=== PATIENT | female | born 1940 | race Hispanic/Latino ===

== ENCOUNTER 2017-01-14 17:53 | Inpatient (IN) | payer MEDICARE ==
[2017-01-14] MEDS ORDERED: DUONEB *Not for PRN Use IH ONE (18:56)
[2017-01-14 19:34] LABS: Hematocrit 27.7 % (30.3-42.9); Hemoglobin 9.2 gm/dl (10.1-14.3); Mean Corpuscular HGB Conc 33 % (30-34); Mean Corpuscular Hemoglobin 39 pg (28-32); Platelet Count 311 K/mm3 (140-440); Red Blood Count 2.34 M/mm3 (3.65-5.03); White Blood Count 4.7 K/mm3 (4.5-11.0)
[2017-01-14 19:35] LABS: Mean Corpuscular Volume 118 fl (79-97); Red Cell Distribution Width 28.4 % (13.2-15.2)
[2017-01-14 19:50] LABS: Anion Gap 17 mmol/L; BUN/Creatinine Ratio 22.22; Blood Urea Nitrogen 20 mg/dL (7-17); Calcium 8.6 mg/dL (8.4-10.2); Carbon Dioxide 27 mmol/L (22-30); Chloride 105.2 mmol/L (98-107); Glucose 104 mg/dL (65-100); Potassium 4.7 mmol/L (3.6-5.0); Sodium 144 mmol/L (137-145)
[2017-01-14 20:07] LABS: Basophils % (Manual) 0 % (0.0-1.8); Blastocytes % (Manual) 0 %
[2017-01-14 20:09] LABS: Anisocytosis 3+; Elliptocytes Few; Macrocytosis 2+; Platelet Clumps Rare; Platelet Estimate Consistent w Auto; Poikilocytosis Few
[2017-01-14 20:10] LABS: Diff Status Complete
[2017-01-14] MEDS ORDERED: ZITHROMAX 500 MG in NACL 0.9% 250ML 250 ML IV ONE (20:37)
[2017-01-14] MEDS ORDERED: TESSALON PERLES PO ONE (20:37)
--- NOTE | 2017-01-14 21:20 | Emergency Department Report ---
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 Positive increased wheezing. Positive cough occasionally productive of thick clear sputum. Positive chest pain associated with cough episodes only. She denies nausea, vomiting, diaphoresis, or calf tenderness. Positive chronic leg edema reported. Patient reports that on the seventh she refused a blood transfusion at [facility] [place] [facility]. Patient typically uses oxygen as needed but has been using it all the time for the last 2 days. Patient took a prednisone 2 days ago but isn't taking it continuously. Her sanitation truck driver Dr. Cuellar gave her prescription of prednisone to take as a mini taper as needed. PMD: Dr Tilley - Related Data Home Medications Medication Instructions Recorded Confirmed Last Taken Aspirin [Aspirin BABY CHEW TAB] 81 mg PO DAILY 11/23/14 01/14/17 10/06/16 10:30 81mg Furosemide [Lasix TAB] 40 mg PO PRN PRN 11/23/14 01/14/17 10/06/16 10:30 40mg HYDROcodone/APAP 10-325 [[place] 1 each PO Q6HR PRN 11/23/14 01/14/17 09/30/16 21: 00 10-325 mg TAB] 1 tab Losartan [Cozaar] 50 mg PO QDAY 11/23/14 01/14/17 10/06/16 10:30 50mg amLODIPine [Norvasc] 5 mg PO DAILY 11/23/14 01/14/17 10/06/16 10:30 5mg Cranberry Fruit Extract [Cranberry] 300 mg PO QDAY 07/28/16 01/14/17 10/05/16 21 :00 300mg Lactobacillus Combination No.8 1 each PO QDAY 07/28/16 01/14/17 10/05/16 21:00 [Adult Probiotic] 1 tab Epoetin Tirso 40,000 Unit (Nf) 50,000 unit SUB-Q QWEEK 0401/14/17 10:30 [Procrit (Nf)] 50,000 Folic Acid [Folvite] 1 mg PO BID 08/26/16 01/14/17 10/06/16 10:30 1mg Levothyroxine [Synthroid] 50 mcg PO QAM 09/16/16 01/14/17 10/06/16 10:30 50mcg Ranitidine HCl [Zantac 150 MG TAB] 150 mg PO BID MDD 300mg 09/16/16 01/14/1710/17 10:30 150mg Previous Rx's Medication Instructions Recorded Last Taken Type Carvedilol [Coreg] 3.125 mg PO BID #60 tablet 03/02/14 10/06/16 10:30 Rx 3.125mg Cholecalciferol (Vitamin D3) 2,000 unit PO QDAY #30 capsule 03/02/14 10/06/16 10 :30 Rx [Vitamin D3 2,000 unit] Cilostazol [Pletal] 100 mg PO BID #60 tablet 03/02/14 10/05/16 21:00 Rx 100mg Cyanocobalamin (Vitamin B-12) 5,000 mcg SL DAILY #30 tab.subl 03/02/14 10/06/16 10:30 Rx [Vitamin B-12] 5000mcg Simvastatin [Zocor TAB] 20 mg PO QHS #30 tablet 03/02/14 10/04/16 21:00 Rx 20mg traMADol [Ultram 50 MG tab] 50 mg PO Q6H PRN #60 tablet 03/02/14 10/05/16 21:00 Rx 50mg Allergies Allergy/AdvReac Type Severity Reaction Status Date / Time No Known Allergies Allergy Verified 02/26/14 12:46 ED Review of Systems ROS: Stated complaint: MYLES Other details as noted in HPI Comment: All other systems reviewed and negative Other: Constitutional: No fevers chills Eyes: No eye pain visual changes ENT: No ear pain or throat pain Neck: Denies pain Respiratory: as per hpi Cardiovascular: Denies palpitations, syncope GI: Denies abdominal pain, nausea, vomiting, diarrhea : Denies dysuria Musculoskeletal: Denies back pain Skin: Denies rash, lesions, erythema Neurologic: Denies headache, numbness, weakness Psychiatric: Denies suicidal ideation, hallucinations ED Past Medical Hx - Past Medical History Hx Hypertension: Yes Hx Heart Attack/AMI: No Hx Deep Vein Thrombosis: No Hx Pulmonary Embolism: No Hx GERD: Yes Hx Renal Disease: Yes Hx Arthritis: Yes Hx Seizures: No Hx Asthma: No Hx COPD: Yes Hx Tuberculosis: No Hx Dementia: No Hx HIV: No Additional medical history: HX of MDS - Surgical History Hx Coronary Stent: No Hx Pacemaker: No Hx Internal Defibrillator: No Additional Surgical History: Hysterectomy - Social History Smoking Status: Never Smoker Substance Use Type: None - Medications Home Medications: Home Medications Medication Instructions Recorded Confirmed Last Taken Type Carvedilol [Coreg] 3.125 mg PO BID #60 tablet 03/02/14 01/14/17 10/06/16 10:30 Rx 3.125mg Cholecalciferol (Vitamin D3) 2,000 unit PO QDAY #30 capsule 03/02/14 01/14/17 10:30 Rx [Vitamin D3 2,000 unit] Cilostazol [Pletal] 100 mg PO BID #60 tablet 03/02/14 01/14/17 10/05/16 21:00 Rx 100mg Cyanocobalamin (Vitamin B-12) 5,000 mcg SL DAILY #30 tab.subl 03/02/14 01/14/17 10/06/16 10:30 Rx [Vitamin B-12] 5000mcg Simvastatin [Zocor TAB] 20 mg PO QHS #30 tablet 03/02/14 01/14/17 10/04/16 21: 00 Rx 20mg traMADol [Ultram 50 MG tab] 50 mg PO Q6H PRN #60 tablet 03/02/14 01/14/17 21:00 Rx 50mg Aspirin [Aspirin BABY CHEW TAB] 81 mg PO DAILY 11/23/14 01/14/17 10/06/16 10:30 History 81mg Furosemide [Lasix TAB] 40 mg PO PRN PRN 11/23/14 01/14/17 10/06/16 10:30 History 40mg HYDROcodone/APAP 10-325 [[place] 1 each PO Q6HR PRN 11/23/14 01/14/17 09/30/16 21: 00 History 10-325 mg TAB] 1 tab Losartan [Cozaar] 50 mg PO QDAY 11/23/14 01/14/17 10/06/16 10:30 History 50mg amLODIPine [Norvasc] 5 mg PO DAILY 11/23/14 01/14/17 10/06/16 10:30 History 5mg Cranberry Fruit Extract [Cranberry] 300 mg PO QDAY 07/28/16 01/14/17 10/05/16 21 :00 History 300mg Lactobacillus Combination No.8 1 each PO QDAY 07/28/16 01/14/17 10/05/16 21:00 History [Adult Probiotic] 1 tab Epoetin Tirso 40,000 Unit (Nf) 50,000 unit SUB-Q QWEEK 08/26/16 01/14/17 10:30 History [Procrit (Nf)] 50,000 Folic Acid [Folvite] 1 mg PO BID 08/26/16 01/14/17 10/06/16 10:30 History 1mg Levothyroxine [Synthroid] 50 mcg PO QAM 09/16/16 01/14/17 10/06/16 10:30 History 50mcg Ranitidine HCl [Zantac 150 MG TAB] 150 mg PO BID MDD 300mg 09/16/16 01/14/1710/17 10:30 History 150mg ED Physical Exam - General Limitations: No Limitations - Other Other exam information: General: No limitations, patient is alert in no acute distress Head exam: Atraumatic, normocephalic Eyes exam: Normal appearance, pupils equal reactive to light, extraocular movements intact ENT: Moist mucous membrane, normal oropharynx Neck exam: Normal inspection, full range of motion, no meningismus nontender Respiratory exam: Diminished breath sounds, no wheezes, rales or crackles however, auscultated after receiving the treatment and patient reports improvement Cardiovascular: Normal rate and rhythm Abdomen: Soft, nondistended, and nontender, with normal bowel sounds, no rebound, or guarding Extremity: Full range of motion normal inspection no deformity Back: Normal Inspection, full range of motion, no tenderness Neurologic: Alert, oriented x3, cranial nerves intact, no motor or sensory deficit Psychiatric: normal affect, normal mood Skin: Warm, dry, intact ED Course Vital Signs 01/14/17 01/14/17 01/14/17 19:02 19:40 19:50 Temperature 98 F Pulse Rate 78 Pulse Rate [ 86 89 Anterior Bilateral Throughout] Respiratory 16 Rate Respiratory 16 16 Rate [Anterior Bilateral Throughout] Blood Pressure 146/87 O2 Sat by Pulse 95 Oximetry - Reevaluation(s) Reevaluation #1: 01/14/17 21:22 Patient treated with several nebs and Solu-Medrol in the ED. Azithromycin initiated. No infiltrate ED Medical Decision Making - Lab Data Result diagrams: 01/14/17 19:11 01/14/17 19:11 Lab Results 01/14/17 01/14/17 Range/Units 19:11 19:11 WBC 4.7 (4.5-11.0) K/mm3 RBC 2.34 L (3.65-5.03) M/mm3 Hgb 9.2 L (10.1-14.3) gm/dl Hct 27.7 L (30.3-42.9) % MCV 118 H (79-97) fl MCH 39 H (28-32) pg MCHC 33 (30-34) % RDW 28.4 H (13.2-15.2) % Plt Count 311 (140-440) K/mm3 [place] % (Auto) Chain Carrier Add Manual Diff Complete Total Counted 100 Seg Neuts % (Manual) 49.0 (40.0-70.0) % Band Neutrophils % 0 % Lymphocytes % (Manual) 29.0 (13.4-35.0) % Reactive Lymphs % (Man) 0 % Monocytes % (Manual) 16.0 H (0.0-7.3) % Eosinophils % (Manual) 6.0 H (0.0-4.3) % Basophils % (Manual) 0 (0.0-1.8) % Metamyelocytes % 0 % Myelocytes % 0 % Promyelocytes % 0 % Blast Cells % 0 % Nucleated RBC % Not Reportable Seg Neutrophils # Man 2.3 (1.8-7.7) K/mm3 Band Neutrophils # 0.0 K/mm3 Lymphocytes # (Manual) 1.4 (1.2-5.4) K/mm3 Abs React Lymphs (Man) 0.0 K/mm3 Monocytes # (Manual) 0.8 (0.0-0.8) K/mm3 Eosinophils # (Manual) 0.3 (0.0-0.4) K/mm3 Basophils # (Manual) 0.0 (0.0-0.1) K/mm3 Metamyelocytes # 0.0 K/mm3 Myelocytes # 0.0 K/mm3 Promyelocytes # 0.0 K/mm3 Blast Cells # 0.0 K/mm3 WBC Morphology Not Reportable Hypersegmented Neuts Not Reportable Hyposegmented Neuts Not Reportable Hypogranular Neuts Not Reportable Smudge Cells Not Reportable Toxic Granulation Not Reportable Toxic Vacuolation Not Reportable Dohle Bodies Not Reportable Pelger-Huet Anomaly Not Reportable Maximo Rods Not Reportable Platelet Estimate Consistent w auto Clumped Platelets Rare Plt Clumps, EDTA Not Reportable Large Platelets Not Reportable Giant Platelets Not Reportable Platelet Satelliting Not Reportable Plt Morphology Comment Not Reportable RBC Morphology Not Reportable Dimorphic RBCs Not Reportable Polychromasia Not Reportable Hypochromasia Not Reportable Poikilocytosis Few Anisocytosis 3+ Microcytosis Not Reportable Macrocytosis 2+ Spherocytes Not Reportable Pappenheimer Bodies Not Reportable Sickle Cells Not Reportable Target Cells Not Reportable Tear Drop Cells Not Reportable Ovalocytes Not Reportable Helmet Cells Not Reportable [place] Bodies Not Reportable [place] Rings Not Reportable Angela Cells Not Reportable Bite Cells Not Reportable Crenated Cell Not Reportable Elliptocytes Few Acanthocytes (Spur) Not Reportable Rouleaux Not Reportable Hemoglobin C Crystals Not Reportable Schistocytes Not Reportable Malaria parasites Not Reportable Elijah Bodies Not Reportable Hem Pathologist Commnt No Sodium 144 (137-145) mmol/L Potassium 4.7 (3.6-5.0) mmol/L Chloride 105.2 (98-107) mmol/L Carbon Dioxide 27 (22-30) mmol/L Anion Gap 17 mmol/L BUN 20 H (7-17) mg/dL Creatinine 0.9 (0.7-1.2) mg/dL Estimated GFR > 60 ml/min BUN/Creatinine Ratio 22.22 % Glucose 104 H (65-100) mg/dL Calcium 8.6 (8.4-10.2) mg/dL Troponin T < 0.010 (0.00-0.029) ng/mL - EKG Data -: EKG Interpreted by Me (nsr rate 80, no stemi) - Medical Decision Making Patient will be admitted to the hospital for acute COPD exacerbation. She was treated with nebs, steroids, and azithromycin. Lindy Joseph also provided for cough - Differential Diagnosis CHF, pneumonia, bronchitis Critical Care Time: No Critical care attestation.: If time is entered above; I have spent that time in minutes in the direct care of this critically ill patient, excluding procedure time. ED Disposition Clinical Impression: COPD exacerbation, Anemia Disposition: OP ADMIT IP TO THIS HOSP Is pt being admited?: Yes Condition: Stable Time of Disposition: 21:23 (Dr Garcia/hosp)
[2017-01-14 21:44] LABS: Bacteria,Urine 1+ /HPF (Negative); Bilirubin,Urine NEG (Negative); Blood,Urine NEG (Negative); Ketones,Urine NEG (Negative); Leukocyte Esterase,Urine NEG (Negative); Mucus,Urine FEW /HPF; Nitrite,Urine NEG (Negative); Protein,Urine <15 mg/dL mg/dL (Negative)
[2017-01-14] MEDS ORDERED: DULCOLAX PR PRN (23:24)
[2017-01-14] MEDS ORDERED: ZOFRAN IV PRN (23:24)
[2017-01-14] MEDS ORDERED: MILK OF MAGNESIA PO PRN (23:24)
--- NOTE | 2017-01-14 23:24 | History and Physical Report ---
History of Present Illness Date of examination: 01/14/17 Date of admission: 01/14/17 22:20 History of present illness: Summary 2-year-old woman history of hypertension, COPD, hyperlipidemia, hypothyroidism, MDS, comes to emergency room with complains of cough and shortness of breath, not relieved with her nebulizer treatments at home. Patient stated that her symptoms worsened throughout the day, she was visited by both health nurse who recommended that the patient got to the emergency room for further evaluation Review Of Systems: Constitutional: no weight loss Ears, eyes, nose, mouth and throat: no nasal congestion, no nasal discharge, no sinus pressure, blurry vision, diplopia Neck: No neck pain or rigidity. Cardiovascular: No chest pain, orthopnea, palpitations Respiratory: + shortness of breath, cough Gastrointestinal: abdominal pain, hematochezia Genitourinary : no dysuria, frequency , hematuria Musculoskeletal: no muscle ache Integumentary: no rash, no pruritis Neurological: no parathesias, focal weakness Endocrine: no cold or heat intolerance, no polyuria or polydipsia Hematologic/Lymphatic: no easy bruising, no easy bleeding, no gland swelling Allergic/Immunologic: no urticaria, no angioedema. PAST MEDICAL HISTORY:hypertension, COPD, hyperlipidemia, hypothyroidism , MDS PAST SURGICAL HISTORY: Hysterectomy FAMILY HISTORY: Hypertension SOCIAL HISTORY: Denies alcohol, tobacco, drugs Medications and Allergies Allergies Allergy/AdvReac Type Severity Reaction Status Date / Time No Known Allergies Allergy Verified 02/26/14 12:46 Home Medications Medication Instructions Recorded Confirmed Last Taken Type Carvedilol [Coreg] 3.125 mg PO BID #60 tablet 03/02/14 01/14/17 10/06/16 10:30 Rx 3.125mg Cholecalciferol (Vitamin D3) 2,000 unit PO QDAY #30 capsule 03/02/14 01/14/17 10:30 Rx [Vitamin D3 2,000 unit] Cilostazol [Pletal] 100 mg PO BID #60 tablet 03/02/14 01/14/17 10/05/16 21:00 Rx 100mg Cyanocobalamin (Vitamin B-12) 5,000 mcg SL DAILY #30 tab.subl 03/02/14 01/14/17 10/06/16 10:30 Rx [Vitamin B-12] 5000mcg Simvastatin [Zocor TAB] 20 mg PO QHS #30 tablet 03/02/14 01/14/17 10/04/16 21: 00 Rx 20mg traMADol [Ultram 50 MG tab] 50 mg PO Q6H PRN #60 tablet 03/02/14 01/14/17 21:00 Rx 50mg Aspirin [Aspirin BABY CHEW TAB] 81 mg PO DAILY 11/23/14 01/14/17 10/06/16 10:30 History 81mg Furosemide [Lasix TAB] 40 mg PO PRN PRN 11/23/14 01/14/17 10/06/16 10:30 History 40mg HYDROcodone/APAP 10-325 [[place] 1 each PO Q6HR PRN 11/23/14 01/14/17 09/30/16 21: 00 History 10-325 mg TAB] 1 tab Losartan [Cozaar] 50 mg PO QDAY 11/23/14 01/14/17 10/06/16 10:30 History 50mg amLODIPine [Norvasc] 5 mg PO DAILY 11/23/14 01/14/17 10/06/16 10:30 History 5mg Cranberry Fruit Extract [Cranberry] 300 mg PO QDAY 07/28/16 01/14/17 10/05/16 21 :00 History 300mg Lactobacillus Combination No.8 1 each PO QDAY 07/28/16 01/14/17 10/05/16 21:00 History [Adult Probiotic] 1 tab Epoetin Tirso 40,000 Unit (Nf) 50,000 unit SUB-Q QWEEK 08/26/16 01/14/17 10:30 History [Procrit (Nf)] 50,000 Folic Acid [Folvite] 1 mg PO BID 08/26/16 01/14/17 10/06/16 10:30 History 1mg Levothyroxine [Synthroid] 50 mcg PO QAM 09/16/16 01/14/17 10/06/16 10:30 History 50mcg Ranitidine HCl [Zantac 150 MG TAB] 150 mg PO BID MDD 300mg 09/16/16 01/14/1710/17 10:30 History 150mg Active Meds: Active Medications Enoxaparin Sodium (Lovenox) 30 mg SUB-Q QDAY HEATHER Exam - Physical Exam Narrative exam: Gen. appearance: Patient lying in bed in no acute distress HEENT: Normocephalic/atraumatic, pupils equal round reactive to light, extra alkaline movement intact, no scleral icterus, no JVD or thyromegaly or nodule, neck is supple, mucous membrane moist, no erythema or exudate Heart: S1-S2, regular rate and rhythm Lungs: Wheezing bilateral breathing comfortable Abdomen: Positive bowel sounds, nontender, nondistended, no organomegaly Extremities: No edema, cyanosis, clubbing Neuro:: Oriented 3 , cranial nerves II-12 intact, speech, motor intact Skin: No rash, nodules, warm dry - Constitutional Vitals: Temp Pulse Resp BP Pulse Ox 98 F 74 16 144/56 95 01/14/17 19:02 01/14/17 21:50 01/14/17 21:50 01/14/17 21:50 01/14/17 21:50 Results - Labs CBC & Chem 7: 01/14/17 19:11 01/14/17 19:11 - Imaging and Cardiology EKG: image reviewed Chest x-ray: image reviewed Assessment and Plan Assessment COPD exacerbation Hypertension Hyperlipidemia Hypothyroidism MDS Plan Admit to medicine Start high-dose IV steroids, nebulizer treatments Check reticulocyte enzymes, continue appropriate outpatient medications DVT prophylaxis
[2017-01-15] MEDS: DUONEB *Not for PRN Use IH SCH ×4 (02:26→19:23)
[2017-01-15 04:02] LABS: Hematocrit 25.5 % (30.3-42.9); Hemoglobin 9.2 gm/dl (10.1-14.3); Mean Corpuscular HGB Conc 36 % (30-34); Mean Corpuscular Hemoglobin 44 pg (28-32); Platelet Count 305 K/mm3 (140-440); Red Blood Count 2.12 M/mm3 (3.65-5.03)
[2017-01-15 04:11] LABS: Mean Corpuscular Volume 121 fl (79-97); Red Cell Distribution Width 28.8 % (13.2-15.2)
[2017-01-15 04:21] LABS: Anion Gap 17 mmol/L; Blood Urea Nitrogen 20 mg/dL (7-17); Calcium 8.7 mg/dL (8.4-10.2); Carbon Dioxide 24 mmol/L (22-30); Chloride 103.2 mmol/L (98-107); Glucose 166 mg/dL (65-100); Potassium 4.7 mmol/L (3.6-5.0); Sodium 139 mmol/L (137-145)
[2017-01-15 04:45] LABS: Creatine Kinase MB 1.4 ng/mL (0.0-4.0)
[2017-01-15 05:33] LABS: Basophils % (Manual) 0 % (0.0-1.8); Blastocytes % (Manual) 0 %
[2017-01-15 05:34] LABS: Anisocytosis 3+; Macrocytosis 2+
[2017-01-15 05:38] LABS: Polychromasia Rare
[2017-01-15 05:39] LABS: Giant Platelets Rare; Platelet Estimate Appe
[2017-01-15 05:40] LABS: Diff Status Complete
--- NOTE | 2017-01-15 07:36 | XRay Report ---
Chest 2 views: Compared to 09/16/16. History: Shortness of breath. Findings: Normal cardiomediastinal silhouette. Trachea is midline. Evidence of emphysema. No acute consolidation or pleural effusion. Impression: Emphysema. No acute lung changes.
[2017-01-15] MEDS: LOVENOX SUB-Q SCH (09:23)
--- NOTE | 2017-01-15 09:31 | Hem/Onc Progress Note ---
Assessment and Plan Patient's CK-MB is high. May need cardiac evaluation. In the meantime we will follow her CBC and if she drops below 9 tomorrow, we will transfuse her one unit of packed RBCs. Subjective Date of service: 01/15/17 Interval history: Patient is known to me. History of myelodysplastic syndrome requiring transfusions regularly. Last transfusion was last week. Patient presented with shortness of breath. Hemoglobin 9.2. Patient states that she feels she needs blood which makes her feel better. Objective - Constitutional Vitals: Last Vital Signs Temp 98.3 F 01/14/17 23:30 Pulse 83 01/14/17 23:30 Resp 22 01/14/17 23:30 BP 142/54 01/14/17 23:30 Pulse Ox 96 01/14/17 23:30 Pain Intensity (0-10): denies any pain General appearance: mild distress Performance status: 3-limited selfcare - Neck Neck: supple - Respiratory Respiratory effort: Positive: normal Respiratory: bilateral: diminished - Cardiovascular Rhythm: regular Extremities: No edema - Gastrointestinal General gastrointestinal: Present: soft - Labs Lab Results: Laboratory Results - last 24 hr 01/15/17 01/15/17 01/15/17 03:35 03:35 03:35 WBC 4.0 L RBC 2.12 L Hgb 9.2 L Hct 25.5 L MCV 121 H MCH 44 H MCHC 36 H RDW 28.8 H Plt Count 305 Add Manual Diff Complete Total Counted 100 Seg Neuts % (Manual) 82.0 H Band Neutrophils % 3.0 Lymphocytes % (Manual) 11.0 L Reactive Lymphs % (Man) 1.0 Monocytes % (Manual) 2.0 Eosinophils % (Manual) 1.0 Basophils % (Manual) 0 Metamyelocytes % 0 Myelocytes % 0 Promyelocytes % 0 Blast Cells % 0 Nucleated RBC % Not Reportable Seg Neutrophils # Man 3.3 Band Neutrophils # 0.1 Lymphocytes # (Manual) 0.4 L Abs React Lymphs (Man) 0.0 Monocytes # (Manual) 0.1 Eosinophils # (Manual) 0.0 Basophils # (Manual) 0.0 Metamyelocytes # 0.0 Myelocytes # 0.0 Promyelocytes # 0.0 Blast Cells # 0.0 WBC Morphology Not Reportable Hypersegmented Neuts Not Reportable Hyposegmented Neuts Not Reportable Hypogranular Neuts Not Reportable Smudge Cells Not Reportable Toxic Granulation Not Reportable Toxic Vacuolation Not Reportable Dohle Bodies Not Reportable Pelger-Huet Anomaly Not Reportable Maximo Rods Not Reportable Platelet Estimate Appe Clumped Platelets Not Reportable Plt Clumps, EDTA Not Reportable Large Platelets Not Reportable Giant Platelets Rare Platelet Satelliting Not Reportable Plt Morphology Comment Not Reportable RBC Morphology Not Reportable Dimorphic RBCs Not Reportable Polychromasia Rare Hypochromasia Not Reportable Poikilocytosis Not Reportable Anisocytosis 3+ Microcytosis Not Reportable Macrocytosis 2+ Spherocytes Not Reportable Pappenheimer Bodies Not Reportable Sickle Cells Not Reportable Target Cells Not Reportable Tear Drop Cells Not Reportable Ovalocytes Not Reportable Helmet Cells Not Reportable [place] Bodies Not Reportable [place] Rings Not Reportable Angela Cells Not Reportable Bite Cells Not Reportable Crenated Cell Not Reportable Elliptocytes Not Reportable Acanthocytes (Spur) Not Reportable Rouleaux Not Reportable Hemoglobin C Crystals Not Reportable Schistocytes Not Reportable Malaria parasites Not Reportable Elijah Bodies Not Reportable Hem Pathologist Commnt No Sodium 139 Potassium 4.7 Chloride 103.2 Carbon Dioxide 24 Anion Gap 17 BUN 20 H Creatinine 0.8 Estimated GFR > 60 BUN/Creatinine Ratio 25.00 Glucose 166 H Calcium 8.7 Total Creatine Kinase 27 L CK-MB (CK-2) 1.4 CK-MB (CK-2) Rel Index 5.1 H Troponin T 01/15/17 03:35 WBC RBC Hgb Hct MCV MCH MCHC RDW Plt Count Add Manual Diff Total Counted Seg Neuts % (Manual) Band Neutrophils % Lymphocytes % (Manual) Reactive Lymphs % (Man) Monocytes % (Manual) Eosinophils % (Manual) Basophils % (Manual) Metamyelocytes % Myelocytes % Promyelocytes % Blast Cells % Nucleated RBC % Seg Neutrophils # Man Band Neutrophils # Lymphocytes # (Manual) Abs React Lymphs (Man) Monocytes # (Manual) Eosinophils # (Manual) Basophils # (Manual) Metamyelocytes # Myelocytes # Promyelocytes # Blast Cells # WBC Morphology Hypersegmented Neuts Hyposegmented Neuts Hypogranular Neuts Smudge Cells Toxic Granulation Toxic Vacuolation Dohle Bodies Pelger-Huet Anomaly Maximo Rods Platelet Estimate Clumped Platelets Plt Clumps, EDTA Large Platelets Giant Platelets Platelet Satelliting Plt Morphology Comment RBC Morphology Dimorphic RBCs Polychromasia Hypochromasia Poikilocytosis Anisocytosis Microcytosis Macrocytosis Spherocytes Pappenheimer Bodies Sickle Cells Target Cells Tear Drop Cells Ovalocytes Helmet Cells [place] Bodies [place] Rings [place] Cells Bite Cells Crenated Cell Elliptocytes Acanthocytes (Spur) Rouleaux Hemoglobin C Crystals Schistocytes Malaria parasites Elijah Bodies Hem Pathologist Commnt Sodium Potassium Chloride Carbon Dioxide Anion Gap BUN Creatinine Estimated GFR BUN/Creatinine Ratio Glucose Calcium Total Creatine Kinase CK-MB (CK-2) CK-MB (CK-2) Rel Index Troponin T < 0.010
[2017-01-15] MEDS ORDERED: LOVENOX SUB-Q SCH (10:00)
--- NOTE | 2017-01-15 11:02 | Admit Criteria Form ---
Admission Criteria Documentation: COPD Clinical Indications for Admission to Inpatient Care ([place]/ check or initial the applicable condition/criteria) Admission is indicated for ANY ONE of the following (1)(2)(3): [ ]I. Acute exacerbation by high-risk comorbidity(e.g., pneumonia, dysrhythmia, heart failure, pleural effusion, pneumothorax) or severe underlying COPD (eg, baseline FEV1 less than 50% predicted) [x ]II. Inpatient admission required[A] rather than observation care (see Chronic Obstructive Pulmonary Disease: Observation Care) because of ANY ONE of the following: [x ]a) New or pre-existing signs or symptoms of COPD (eg, dyspnea or Tachypnea at rest or with minimal activity) that persist despite outpatient and observation care treatment [ ]b) New-onset hypoxemia (room air SaO2 less than 90%, PO2 less than 60 mm Hg (8.0 kPa)) that persists despite outpatient and observation care treatment [ ]c) Worsening of pre-existing hypoxemia (eg, new or increased requirement for supplemental oxygen to maintain oxygenation at baseline level) that persists despite outpatient and observation care treatment, with oxygen treatment needs performable only in acute inpatient setting [ ]d) Hypercarbia (PCO2 greater than 40 mm Hg (5.3 kPa))-induced respiratory acidosis (pH less than 7.35) that persists despite outpatient and observation care treatment [ ]e) Supplemental oxygen or respiratory treatments for over 24 hours that are performable only in acute inpatient setting [ ]f) Chest tube placement with active evacuation (e.g., suction, drainage) (6) [ ]g) Other condition, treatment or monitoring requiring inpatient admission [ ]III. Planned invasive surgical or diagnostic procedures requiring acute- care hospitalization [ ]IV. Acute respiratory failure (e.g., uncompensated hypercarbia, severe hypoxemia) [ ]V. Severe comorbid condition (e.g., severe steroid myopathy, acute vertebral fracture) that has acutely worsened pulmonary function [ ]. Altered mental status that is severe or persistent Extended stay beyond goal length of stay may be needed for (29)(30)(31)(32)(33) : [ ]a ) Respiratory Failure. [ ]b) Severe or persisting hypoxemia or hypercarbia [ ]c) Severe or persistent dyspnea [ ]d) Clinically significant Comorbidities (e.g. chronic heart failure, atrial fibrillation with rapid response, pneumonia)(36) [ ]e) Malnutrition (33) The original [facility] content created by [facility] has been revised. The portions of the content which have been revised are identified through the use of italic text or in bold, and [facility] has neither reviewed nor approved the modified material. All other unmodified content is copyright [facility]. Please see references footnoted in the original [facility] edition 2017 Admission Criteria Met: Yes
[2017-01-15 11:37] LABS: Creatine Kinase MB 1.7 ng/mL (0.0-4.0)
[2017-01-15] MEDS ORDERED: Fluarix Quad 2017-2018(36 MOS+) IM ONE (12:00)
--- NOTE | 2017-01-15 12:22 | Progress Note ---
Assessment and Plan Assessment and plan: 76F woman with history of hypertension, COPD, hyperlipidemia, hypothyroidism, MDS, comes to emergency room with complains of cough and shortness of breath, not relieved with her nebulizer treatments at home MDS with symptomatic anemia hematology following, transfuse to keep hg above 9 COPD exacerbation - high-dose IV steroids, nebulizer treatments, and abx where given, but she was then seen by pulmonology who discontinued all these because her lungs are clear in examination and her shortness of breath is most likely from anemia SOB/Elevated CK-MB -Cardiology input appreciated, patient is optimized, no further workup indicated Hypertension Patient has been actually relatively hypotensive, hold blood pressure medications Hyperlipidemia Continue statin Hypothyroidism -check TFTs, continue synthroid DVT prophylaxis lovenox History Interval history: Patient states that she is having generalized weakness and shortness of breath Hospitalist Physical - Physical exam Narrative exam: General.: Appears well, no distress, nontoxic HEENT: Moist mucous membranes, extraocular muscles intact, no lymphadenopathy Neck: supple Cardiac: S1-S2 heard Lungs: clear to auscultation bilaterally Abdomen: soft , nontender, nondistended, bowel sounds positive Extremities: no edema clubbing or cyanosis Skin: no rash or lesions Neurologic: no gross focal deficits Psych: appropriate behavior, appropriate mood, corporative, judgment intact - Constitutional Vitals: Temp Pulse Resp BP Pulse Ox 98.6 F 98 H 20 91/61 95 01/15/17 09:52 01/15/17 09:52 01/15/17 10:00 01/15/17 09:52 01/15/17 10:00 Results - Labs CBC & Chem 7: 01/17/17 13:08 01/15/17 03:35 Labs: Laboratory Last Values WBC 4.0 K/mm3 (4.5-11.0) L 01/15/17 03:35 RBC 2.12 M/mm3 (3.65-5.03) L 01/15/17 03:35 Hgb 9.2 gm/dl (10.1-14.3) L 01/15/17 03:35 Hct 25.5 % (30.3-42.9) L 01/15/17 03:35 MCV 121 fl (79-97) H 01/15/17 03:35 MCH 44 pg (28-32) H 01/15/17 03:35 MCHC 36 % (30-34) H 01/15/17 03:35 RDW 28.8 % (13.2-15.2) H 01/15/17 03:35 Plt Count 305 K/mm3 (140-440) 01/15/17 03:35 [place] % (Auto) Steel Rule Inspector 01/14/17 19:11 Add Manual Diff Complete 01/15/17 03:35 Total Counted 100 01/15/17 03:35 Seg Neuts % (Manual) 82.0 % (40.0-70.0) H 01/15/17 03:35 Band Neutrophils % 3.0 % 01/15/17 03:35 Lymphocytes % (Manual) 11.0 % (13.4-35.0) L 01/15/17 03:35 Reactive Lymphs % (Man) 1.0 % 01/15/17 03:35 Monocytes % (Manual) 2.0 % (0.0-7.3) 01/15/17 03:35 Eosinophils % (Manual) 1.0 % (0.0-4.3) 01/15/17 03:35 Basophils % (Manual) 0 % (0.0-1.8) 01/15/17 03:35 Metamyelocytes % 0 % 01/15/17 03:35 Myelocytes % 0 % 01/15/17 03:35 Promyelocytes % 0 % 01/15/17 03:35 Blast Cells % 0 % 01/15/17 03:35 Nucleated RBC % Not Reportable 01/15/17 03:35 Seg Neutrophils # Man 3.3 K/mm3 (1.8-7.7) 01/15/17 03:35 Band Neutrophils # 0.1 K/mm3 01/15/17 03:35 Lymphocytes # (Manual) 0.4 K/mm3 (1.2-5.4) L 01/15/17 03:35 Abs React Lymphs (Man) 0.0 K/mm3 01/15/17 03:35 Monocytes # (Manual) 0.1 K/mm3 (0.0-0.8) 01/15/17 03:35 Eosinophils # (Manual) 0.0 K/mm3 (0.0-0.4) 01/15/17 03:35 Basophils # (Manual) 0.0 K/mm3 (0.0-0.1) 01/15/17 03:35 Metamyelocytes # 0.0 K/mm3 01/15/17 03:35 Myelocytes # 0.0 K/mm3 01/15/17 03:35 Promyelocytes # 0.0 K/mm3 01/15/17 03:35 Blast Cells # 0.0 K/mm3 01/15/17 03:35 WBC Morphology Not Reportable 01/15/17 03:35 Hypersegmented Neuts Not Reportable 01/15/17 03:35 Hyposegmented Neuts Not Reportable 01/15/17 03:35 Hypogranular Neuts Not Reportable 01/15/17 03:35 Smudge Cells Not Reportable 01/15/17 03:35 Toxic Granulation Not Reportable 01/15/17 03:35 Toxic Vacuolation Not Reportable 01/15/17 03:35 Dohle Bodies Not Reportable 01/15/17 03:35 Pelger-Huet Anomaly Not Reportable 01/15/17 03:35 Maximo Rods Not Reportable 01/15/17 03:35 Platelet Estimate Appe 01/15/17 03:35 Clumped Platelets Not Reportable 01/15/17 03:35 Plt Clumps, EDTA Not Reportable 01/15/17 03:35 Large Platelets Not Reportable 01/15/17 03:35 Giant Platelets Rare 01/15/17 03:35 Platelet Satelliting Not Reportable 01/15/17 03:35 Plt Morphology Comment Not Reportable 01/15/17 03:35 RBC Morphology Not Reportable 01/15/17 03:35 Dimorphic RBCs Not Reportable 01/15/17 03:35 Polychromasia Rare 01/15/17 03:35 Hypochromasia Not Reportable 01/15/17 03:35 Poikilocytosis Not Reportable 01/15/17 03:35 Anisocytosis 3+ 01/15/17 03:35 Microcytosis Not Reportable 01/15/17 03:35 Macrocytosis 2+ 01/15/17 03:35 Spherocytes Not Reportable 01/15/17 03:35 Pappenheimer Bodies Not Reportable 01/15/17 03:35 Sickle Cells Not Reportable 01/15/17 03:35 Target Cells Not Reportable 01/15/17 03:35 Tear Drop Cells Not Reportable 01/15/17 03:35 Ovalocytes Not Reportable 01/15/17 03:35 Helmet Cells Not Reportable 01/15/17 03:35 [place] Bodies Not Reportable 01/15/17 03:35 [place] Rings Not Reportable 01/15/17 03:35 Angela Cells Not Reportable 01/15/17 03:35 Bite Cells Not Reportable 01/15/17 03:35 Crenated Cell Not Reportable 01/15/17 03:35 Elliptocytes Not Reportable 01/15/17 03:35 Acanthocytes (Spur) Not Reportable 01/15/17 03:35 Rouleaux Not Reportable 01/15/17 03:35 Hemoglobin C Crystals Not Reportable 01/15/17 03:35 Schistocytes Not Reportable 01/15/17 03:35 Malaria parasites Not Reportable 01/15/17 03:35 Elijah Bodies Not Reportable 01/15/17 03:35 Hem Pathologist Commnt No 01/15/17 03:35 Sodium 139 mmol/L (137-145) 01/15/17 03:35 Potassium 4.7 mmol/L (3.6-5.0) 01/15/17 03:35 Chloride 103.2 mmol/L (98-107) 01/15/17 03:35 Carbon Dioxide 24 mmol/L (22-30) 01/15/17 03:35 Anion Gap 17 mmol/L 01/15/17 03:35 BUN 20 mg/dL (7-17) H 01/15/17 03:35 Creatinine 0.8 mg/dL (0.7-1.2) 01/15/17 03:35 Estimated GFR > 60 ml/min 01/15/17 03:35 BUN/Creatinine Ratio 25.00 % 01/15/17 03:35 Glucose 166 mg/dL (65-100) H 01/15/17 03:35 Calcium 8.7 mg/dL (8.4-10.2) 01/15/17 03:35 Total Creatine Kinase 18 units/L (30-135) L 01/15/17 10:29 CK-MB (CK-2) 1.7 ng/mL (0.0-4.0) 01/15/17 10:29 CK-MB (CK-2) Rel Index 9.4 (0-4) H 01/15/17 10:29 Troponin T < 0.010 ng/mL (0.00-0.029) 01/15/17 10:36 Urine Color Yellow (Yellow) 01/14/17 21:12 Urine Turbidity Clear (Clear) 01/14/17 21:12 Urine pH 5.0 (5.0-7.0) 01/14/17 21:12 Ur Specific [place] 1.019 (1.003-1.030) 01/14/17 21:12 Urine Protein <15 mg/dl mg/dL (Negative) 01/14/17 21:12 Urine Glucose (UA) Neg mg/dL (Negative) 01/14/17 21:12 Urine Ketones Neg mg/dL (Negative) 01/14/17 21:12 Urine Blood Neg (Negative) 01/14/17 21:12 Urine Nitrite Neg (Negative) 01/14/17 21:12 Urine Bilirubin Neg (Negative) 01/14/17 21:12 Urine Urobilinogen 2.0 mg/dL (<2.0) 01/14/17 21:12 Ur Leukocyte Esterase Neg (Negative) 01/14/17 21:12 Urine WBC (Auto) 1.0 /HPF (0.0-6.0) 01/14/17 21:12 Urine RBC (Auto) 1.0 /HPF (0.0-6.0) 01/14/17 21:12 U Epithel Cells (Auto) 1.0 /HPF (0-13.0) 01/14/17 21:12 Urine Bacteria (Auto) 1+ /HPF (Negative) 01/14/17 21:12 Hyaline Casts 1 /LPF 01/14/17 21:12 Urine Mucus Few /HPF 01/14/17 21:12
[2017-01-15] MEDS ORDERED: LEVAQUIN 750MG/150ML 750 MG/150 ML BAG IV SCH (13:00)
--- NOTE | 2017-01-15 14:01 | Consultation ---
History of Present Illness Consult date: 01/15/17 Requesting physician: ALVARADO MCINTYRE Consult reason: abnormal cardiac enzymes History of present illness: The patient is a 76-year-old female with a past medical history significant for COPD, chronic respiratory failure, on home O2, HTN, myleodysplastic syndrome requiring multiple blood transfusions presents, carotid artery stenosis, PVD and hypothyroidism. She has been seen in our office in the past by Dr. Christopher. She presented to the hospital with complaints of progressively worsening shortness of breath and wheezing (above baseline) for several days prior to arrival. She denies chest pain, nausea, vomiting, diaphoresis, dizziness or syncope. She was noted to have abnormal CK-BM index and thus cardiology has been consulted. Of note, echo done 01/2014 showed mild LVH, EF 55-60%, mild MR, mild TR, mild to moderate NC, RVSP 35mmHg. Lexiscan MPI stress test done 03/2014 was negative for ischemia, EF 65%. Carotid artery duplex done 09/2011 showed no hemodynamically significant stenosis in either artery, left external carotid artery stenosis, mild to moderate irregular, heterogeneous plaque note din the bulb and ICA bilaterally. Past History Past Medical History: anemia, COPD, hypertension, hyperlipidemia, hypothyroidism , PVD, other (MDS) Medications and Allergies Allergies Allergy/AdvReac Type Severity Reaction Status Date / Time No Known Allergies Allergy Verified 02/26/14 12:46 Home Medications Medication Instructions Recorded Confirmed Last Taken Type Carvedilol [Coreg] 3.125 mg PO BID #60 tablet 03/02/14 01/14/17 10/06/16 10:30 Rx 3.125mg Cholecalciferol (Vitamin D3) 2,000 unit PO QDAY #30 capsule 03/02/14 01/14/17 10:30 Rx [Vitamin D3 2,000 unit] Cilostazol [Pletal] 100 mg PO BID #60 tablet 03/02/14 01/14/17 10/05/16 21:00 Rx 100mg Cyanocobalamin (Vitamin B-12) 5,000 mcg SL DAILY #30 tab.subl 03/02/14 01/14/17 10/06/16 10:30 Rx [Vitamin B-12] 5000mcg Simvastatin [Zocor TAB] 20 mg PO QHS #30 tablet 03/02/14 01/14/1710/04/17 21: 00 Rx 20mg traMADol [Ultram 50 MG tab] 50 mg PO Q6H PRN #60 tablet 03/02/14 01/14/17 21:00 Rx 50mg Aspirin [Aspirin BABY CHEW TAB] 81 mg PO DAILY 11/23/14 01/14/17 10/06/16 10:30 History 81mg Furosemide [Lasix TAB] 40 mg PO PRN PRN 11/23/14 01/14/17 10/06/16 10:30 History 40mg HYDROcodone/APAP 10-325 [[place] 1 each PO Q6HR PRN 11/23/14 01/14/17 09/30/16 21: 00 History 10-325 mg TAB] 1 tab Losartan [Cozaar] 50 mg PO QDAY 11/23/14 01/14/17 10/06/16 10:30 History 50mg amLODIPine [Norvasc] 5 mg PO DAILY 11/23/14 01/14/17 10/06/16 10:30 History 5mg Cranberry Fruit Extract [Cranberry] 300 mg PO QDAY 07/28/16 01/14/17 10/05/16 21 :00 History 300mg Lactobacillus Combination No.8 1 each PO QDAY 07/28/16 01/14/17 10/05/16 21:00 History [Adult Probiotic] 1 tab Epoetin Tirso 40,000 Unit (Nf) 50,000 unit SUB-Q QWEEK 08/26/16 01/14/17 10:30 History [Procrit (Nf)] 50,000 Folic Acid [Folvite] 1 mg PO BID 08/26/16 01/14/17 10/06/16 10:30 History 1mg Levothyroxine [Synthroid] 50 mcg PO QAM 09/16/16 01/14/17 10/06/16 10:30 History 50mcg Ranitidine HCl [Zantac 150 MG TAB] 150 mg PO BID MDD 300mg 09/16/16 01/14/1710/17 10:30 History 150mg Active Meds: Active Medications Acetaminophen (Tylenol) 650 mg PO Q4H PRN PRN Reason: Pain MILD(1-3)/Fever >100.5/[place] Albuterol/Ipratropium (Duoneb *Not For Prn Use*) 1 ampul IH Q6HRT [facility] Last Admin: 01/15/17 09:32 Dose: 1 ampul Aspirin (Baby Aspirin) 81 mg PO DAILY [facility] Azithromycin (Zithromax) 250 mg PO QDAY [facility] Stop: 01/18/17 10:01 Bisacodyl (Dulcolax) 10 mg NC QDAY PRN PRN Reason: Constipation unrelieved by MOM Cholecalciferol (Vitamin D3) 2,000 unit PO QDAY [facility] Cilostazol (Pletal) 100 mg PO BID [facility] Enoxaparin Sodium (Lovenox) 40 mg SUB-Q QDAY@1000 [facility] Last Admin: 01/15/17 09:23 Dose: 40 mg Folic Acid (Folvite) 1 mg PO BID [facility] Levothyroxine Sodium (Synthroid) 50 mcg PO QAM [facility] Magnesium Hydroxide (Milk Of Magnesia) 30 ml PO Q4H PRN PRN Reason: Constipation Methylprednisolone Sodium Succinate (Solu-Medrol) 125 mg IV Q6H [facility] Last Admin: 01/15/17 09:27 Dose: 125 mg Miscellaneous Medication (Ranitidine Hcl [Zantac 150 Mg Tab]) 150 mg PO BID [facility] Ondansetron HCl (Zofran) 4 mg IV Q8H PRN PRN Reason: N/V unrelieved by Reglan Simvastatin (Zocor) 20 mg PO QHS [facility] Review of Systems Constitutional: no weight loss, no weight gain, no fever, no chills, no sweats Ears, nose, mouth and throat: no ear pain, no nose pain, no sinus pressure, no sinus pain Cardiovascular: shortness of breath, dyspnea on exertion, high blood pressure, decreased exercise tolerance, no chest pain, no orthopnea, no palpitations, no rapid/irregular heart beat, no edema, no syncope, no lightheadedness, no paroxysmal nocturnal dyspnea, no leg edema Respiratory: cough, shortness of breath, dyspnea on exertion, wheezing, no congestion, no pain on inspiration Gastrointestinal: no abdominal pain, no nausea, no vomiting, no diarrhea, no constipation, no change in bowel habits Genitourinary Female: no pelvic pain, no flank pain, no dysuria, no urinary frequency, no urgency Musculoskeletal: no neck stiffness, no neck pain, no shooting arm pain, no arm numbness/tingling, no low back pain, no shooting leg pain, no leg numbness/ tingling, no redness of joints Integumentary: no rash, no pruritis, no redness, no sores, no wounds Neurological: no head injury, no paralysis, no weakness, no parathesias, no numbness, no tingling, no seizures, no syncope Psychiatric: no anxiety Endocrine: no cold intolerance, no heat intolerance Hematologic/Lymphatic: no easy bruising, no easy bleeding, no lymphadenopathy Allergic/Immunologic: no urticaria, no wheezing Physical Examination Vital Signs Temp Pulse Resp BP Pulse Ox 98 F 78 16 146/87 95 01/14/17 19:02 01/14/17 19:02 01/14/17 19:02 01/14/17 19:02 01/14/17 19:02 General appearance: no acute distress HEENT: Positive: PERRL, Normocephaly, Mucus Membranes Moist Neck: Positive: neck supple, trachea midline Cardiac: Positive: Reg Rate and Rhythm, S1/S2 Lungs: Positive: Decreased Breath Sounds, Oxygen Neuro: Positive: Grossly Intact, Cranial Nerve 2-12 Intact Abdomen: Positive: Unremarkable, Soft, Active Bowel Sounds. Negative: Tender Musculoskeletal: No Fluid Collection, No Pain, Normal Range of Motion Extremities: Absent: edema Results 01/15/17 03:35 01/15/17 03:35 Cardiac Enzymes 01/15/17 01/15/17 Range/Units 03:35 10:29 CK-MB (CK-2) 1.4 1.7 (0.0-4.0) ng/mL CBC 01/15/17 Range/Units 03:35 WBC 4.0 L (4.5-11.0) K/mm3 RBC 2.12 L (3.65-5.03) M/mm3 Hgb 9.2 L (10.1-14.3) gm/dl Hct 25.5 L (30.3-42.9) % Plt Count 305 (140-440) K/mm3 Comprehensive Metabolic Panel 01/15/17 Range/Units 03:35 Sodium 139 (137-145) mmol/L Potassium 4.7 (3.6-5.0) mmol/L Chloride 103.2 (98-107) mmol/L Carbon Dioxide 24 (22-30) mmol/L BUN 20 H (7-17) mg/dL Creatinine 0.8 (0.7-1.2) mg/dL Glucose 166 H (65-100) mg/dL Calcium 8.7 (8.4-10.2) mg/dL - Imaging and Cardiology Echo: report reviewed (01/2014 showed mild LVH, EF 55-60%, mild MR, mild TR, mild to moderate NC, RVSP 35mmHg) EKG: image reviewed EKG interpretations - Telemetry EKG Rhythm: Sinus Rhythm - EKG Sinus rhythms and dysrhythmias: sinus rhythm Ventricular dysrhythmias: ventricular premature com Assessment and Plan Elevated CK-MB relative index is nonspecific at this time in setting of negative troponin, negative CK-MB, ECG with NAF and absence of chest pain. Currently stable cardiac status. No indication for any further cardiac evaluation at this time. Will see PRN. The patient has been seen in conjunction with Dr. Alvarez who agrees with the assessment and plan of care. - Patient Problems (1) COPD exacerbation Current Visit: Yes Status: Acute (2) Chronic respiratory failure Current Visit: Yes Status: Chronic Qualifiers: Respiratory failure complication: R (3) Myelodysplastic syndrome Current Visit: Yes Status: Chronic (4) Anemia Current Visit: Yes Status: Chronic Qualifiers: Anemia type: A Iron deficiency anemia type: I Vitamin B12 deficiency anemia type: V Folate deficiency anemia type: F Bone marrow failure anemia type: B Hemolytic anemia type: H Other causes of anemia: O Chronic kidney disease stage: C (5) Cardiac enzymes elevated Current Visit: Yes Status: Acute
[2017-01-15] MEDS: ZITHROMAX PO SCH (14:24)
[2017-01-15] MEDS: FOLVITE PO SCH ×2 (14:53→21:22)
[2017-01-15] MEDS: PEPCID PO SCH ×2 (14:53→21:27)
[2017-01-15] MEDS: TYLENOL PO PRN (16:19)
[2017-01-15] MEDS: ZOCOR PO SCH (21:22)
[2017-01-15] MEDS: PLETAL PO SCH (21:23)
[2017-01-15] MEDS ORDERED: NON-FORMULARY (Ranitidine Hcl [Zantac 150 Mg Tab] 150 MG) PO SCH (22:00)
[2017-01-16 00:46] LABS: Hemoglobin 8.5 gm/dl (10.1-14.3); Mean Corpuscular HGB Conc 33 % (30-34); Mean Corpuscular Hemoglobin 37 pg (28-32); Platelet Count 359 K/mm3 (140-440); Red Blood Count 2.26 M/mm3 (3.65-5.03)
[2017-01-16 00:56] LABS: Mean Corpuscular Volume 115 fl (79-97); Red Cell Distribution Width 28.2 % (13.2-15.2)
[2017-01-16] MEDS: DUONEB *Not for PRN Use IH SCH ×2 (01:59→09:42)
[2017-01-16] MEDS ORDERED: NORCO 7.5/325 PO PRN (03:28)
[2017-01-16] MEDS ORDERED: NACL 0.9% 500 ML 500 ML IV ONE ×2 (08:49→16:00)
[2017-01-16] MEDS ORDERED: CRANBERRY FRUIT EXTRACT 300 MG PO SCH (10:00)
[2017-01-16] MEDS ORDERED: CYANOCOBALAMIN 5000 MCG SL SCH (10:00)
[2017-01-16] MEDS ORDERED: LACTOBACILLUS COMBINATION NO 8 PO SCH (10:00)
[2017-01-16] MEDS: VITAMIN D3 PO SCH (10:00)
[2017-01-16] MEDS: LACTINEX PO SCH (10:00)
--- NOTE | 2017-01-16 10:19 | Consultation ---
History of Present Illness Consult date: 01/16/17 Requesting physician: ALVARADO MCINTYRE Reason for consult: COPD History of present illness: 76 y/o female with known COPD and chronic respiratory failure, admitted secondary to sequale from MDS. Patient complained of shortness of breath and was started on high dose steroid. Her CXR is stable. She has multiple complaints, all surrounding, blood transfusions and care. She is currently undergoing a neb treatment and lungs are clear. Past History Past Medical History: anemia, COPD, hypertension, hyperlipidemia, hypothyroidism , PVD, other (MDS) Medications and Allergies Allergies Allergy/AdvReac Type Severity Reaction Status Date / Time No Known Allergies Allergy Verified 02/26/14 12:46 Home Medications Medication Instructions Recorded Confirmed Last Taken Type Carvedilol [Coreg] 3.125 mg PO BID #60 tablet 03/02/14 01/14/17 10/06/16 10:30 Rx 3.125mg Cholecalciferol (Vitamin D3) 2,000 unit PO QDAY #30 capsule 03/02/14 01/14/17 10:30 Rx [Vitamin D3 2,000 unit] Cilostazol [Pletal] 100 mg PO BID #60 tablet 03/02/14 01/14/17 10/05/16 21:00 Rx 100mg Cyanocobalamin (Vitamin B-12) 5,000 mcg SL DAILY #30 tab.subl 03/02/14 01/14/17 10/06/16 10:30 Rx [Vitamin B-12] 5000mcg Simvastatin [Zocor TAB] 20 mg PO QHS #30 tablet 03/02/14 01/14/17 10/04/16 21: 00 Rx 20mg traMADol [Ultram 50 MG tab] 50 mg PO Q6H PRN #60 tablet 03/02/14 01/14/17 21:00 Rx 50mg Aspirin [Aspirin BABY CHEW TAB] 81 mg PO DAILY 11/23/14 01/14/17 10/06/16 10:30 History 81mg Furosemide [Lasix TAB] 40 mg PO PRN PRN 11/23/14 01/14/17 10/06/16 10:30 History 40mg HYDROcodone/APAP 10-325 [[place] 1 each PO Q6HR PRN 11/23/14 01/14/17 09/30/16 21: 00 History 10-325 mg TAB] 1 tab Losartan [Cozaar] 50 mg PO QDAY 11/23/14 01/14/17 10/06/16 10:30 History 50mg amLODIPine [Norvasc] 5 mg PO DAILY 11/23/14 01/14/17 10/06/16 10:30 History 5mg Cranberry Fruit Extract [Cranberry] 300 mg PO QDAY 07/28/16 01/14/17 10/05/16 21 :00 History 300mg Lactobacillus Combination No.8 1 each PO QDAY 07/28/16 01/14/17 10/05/16 21:00 History [Adult Probiotic] 1 tab Epoetin Tir[place] 40,000 Unit (Nf) 50,000 unit SUB-Q QWEEK 08/26/16 01/14/17 10:30 History [Procrit (Nf)] 50,000 Folic Acid [Folvite] 1 mg PO BID 08/26/16 01/14/17 10/06/16 10:30 History 1mg Levothyroxine [Synthroid] 50 mcg PO QAM 09/16/16 01/14/17 10/06/16 10:30 History 50mcg Ranitidine HCl [Zantac 150 MG TAB] 150 mg PO BID MDD 300mg 09/16/16 01/14/1710/17 10:30 History 150mg Active Meds: Active Medications Acetaminophen (Tylenol) 650 mg PO Q4H PRN PRN Reason: Pain MILD(1-3)/Fever >100.5/[place] Last Admin: 01/15/17 16:19 Dose: 650 mg Acetaminophen/Hydrocodone Bitart ([place] 7.5/325) 1 each PO Q6H PRN PRN Reason: Pain, Moderate (4-6) Last Admin: 01/16/17 03:39 Dose: 1 each Albuterol/Ipratropium (Duoneb *Not For Prn Use*) 1 ampul IH Q6HRT [facility] Last Admin: 01/16/17 09:42 Dose: 1 ampul Aspirin (Baby Aspirin) 81 mg PO DAILY [facility] Azithromycin (Zithromax) 250 mg PO QDAY [facility] Stop: 01/18/17 10:01 Last Admin: 01/15/17 14:24 Dose: 250 mg Bisacodyl (Dulcolax) 10 mg SD QDAY PRN PRN Reason: Constipation unrelieved by MOM Cholecalciferol (Vitamin D3) 2,000 unit PO QDAY [facility] Cilostazol (Pletal) 100 mg PO BID [facility] Last Admin: 01/15/17 21:23 Dose: 100 mg Cyanocobalamin (Vitamin B-12) 5,000 mcg PO DAILY [facility] Enoxaparin Sodium (Lovenox) 40 mg SUB-Q QDAY@1000 [facility] Last Admin: 01/15/17 09:23 Dose: 40 mg Famotidine (Pepcid) 20 mg PO BID [facility] Last Admin: 01/15/17 21:27 Dose: Not Given Folic Acid (Folvite) 1 mg PO BID [facility] Last Admin: 01/15/17 21:22 Dose: 1 mg Lactobacillus Acidophilus (Lactinex) 1 each PO QDAY [facility] Levothyroxine Sodium (Synthroid) 50 mcg PO QAM [facility] Magnesium Hydroxide (Milk Of Magnesia) 30 ml PO Q4H PRN PRN Reason: Constipation Last Admin: 01/15/17 21:24 Dose: 30 ml Methylprednisolone Sodium Succinate (Solu-Medrol) 60 mg IV Q8H [facility] Ondansetron HCl (Zofran) 4 mg IV Q8H PRN PRN Reason: N/V unrelieved by Reglan Simvastatin (Zocor) 20 mg PO QHS [facility] Last Admin: 01/15/17 21:22 Dose: Not Given Physical Examination Vital signs: Vital Signs Temp Pulse Resp BP Pulse Ox 98 F 78 16 146/87 95 01/14/17 19:02 01/14/17 19:02 01/14/17 19:02 01/14/17 19:02 01/14/17 19:02 General appearance: no acute distress, alert Eyes: non-icteric ENT: oropharynx moist Neck: supple Ascultation: Bilateral: clear, diminished breath sounds Results - Laboratory Findings CBC and BMP: 01/16/17 00:28 01/15/17 03:35 Abnormal lab findings: Abnormal Labs 01/15/17 01/15/17 01/15/17 03:35 03:35 03:35 WBC 4.0 L RBC 2.12 L Hgb 9.2 L Hct 25.5 L MCV 121 H MCH 44 H MCHC 36 H RDW 28.8 H Seg Neuts % (Manual) 82.0 H Lymphocytes % (Manual) 11.0 L Lymphocytes # (Manual) 0.4 L BUN 20 H Glucose 166 H Total Creatine Kinase 27 L CK-MB (CK-2) Rel Index 5.1 H Free T4 01/15/17 01/15/17 01/16/17 10:29 10:43 00:28 WBC RBC 2.26 L Hgb 8.5 L Hct 26.0 L MCV 115 H MCH 37 H MCHC RDW 28.2 H Seg Neuts % (Manual) Lymphocytes % (Manual) Lymphocytes # (Manual) BUN Glucose Total Creatine Kinase 18 L CK-MB (CK-2) Rel Index 9.4 H Free T4 1.60 H - Diagnostic Findings Chest x-ray: image reviewed (No evidence of acute lung disease) Assessment and Plan 76 y/o female with MDS, COPD and chronic respiratory failure, admitted with sequale from MDS. 1. Not in COPD exacerbation. Will stop steroids currently 2. Patient wants blood transfusion. Not sure what the protocol is but she would like to speak with [facility] and the [facility] physician 3. Continue supplemental oxygen 4. Per patient only on albuterol at home twice daily as needed. Will change neb schedule here 5. No further pulmonary recs, will sign off. No objection to discharge home from lung standpoint.
[2017-01-16] MEDS ORDERED: DUONEB *Not for PRN Use IH (10:20)
[2017-01-16] MEDS ORDERED: PROVENTIL IH PRN (10:30)
[2017-01-16] MEDS: PLETAL PO SCH ×2 (10:41→22:07)
[2017-01-16] MEDS: LOVENOX SUB-Q SCH (10:44)
[2017-01-16] MEDS: BABY ASPIRIN PO SCH (10:45)
[2017-01-16] MEDS: PEPCID PO SCH ×2 (10:45→22:07)
[2017-01-16] MEDS: FOLVITE PO SCH ×2 (11:00→22:06)
[2017-01-16] MEDS: ZITHROMAX PO SCH (11:01)
[2017-01-16] MEDS: SYNTHROID PO SCH (11:07)
[2017-01-16] MEDS: VITAMIN B-12 PO SCH (11:43)
--- NOTE | 2017-01-16 12:26 | Discharge Summary ---
Providers - Providers Date of Admission: 01/14/17 22:20 Attending physician: ALVARADO MCINTYRE MD 01/15/17 09:09 Consult to Physician [CONS] Routine Consulting Provider: BRENDA WATTS Reason For Exam: ANEMIA Place consult to:: DR. WATTS Notified:: YES Was contact made?: Yes If yes, spoke with:: DR. WATTS Time called:: 09:10 Comment:: NESSA 01/15/17 12:20 Consult to Physician [CONS] Routine Consulting Provider: KOFI ENCISO Reason For Exam: sob, elevated CK-MB Place consult to:: gilbert heredia Notified:: yes Phone number called:: shawanda Was contact made?: Yes If yes, spoke with:: gilbert Time called:: 12:43 Comment:: nessa 01/15/17 15:31 Consult to Physician [CONS] Routine Consulting Provider: ERICA GEORGES Reason For Exam: copd Place consult to:: dr. georges Notified:: yes Phone number called:: [phone] Was contact made?: Yes If yes, spoke with:: dr. georges Time called:: 15:30 Comment:: nessa Primary care physician: [employer] SE[employer] LINE REPAIRER Hospitalization Condition: Stable Hospital course: 76F woman with history of hypertension, COPD, hyperlipidemia, hypothyroidism, MDS, comes to emergency room with complains of cough and shortness of breath, not relieved with her nebulizer treatments at home. She was seen by pulmonology and cardiology who both noted that she did not have an acute pulmonary or cardiac issue. She was also seen by her health and wellness instructor, she is noted to have drop in hemoglobin. 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 Last transfusion was about 2 weeks prior to coming to the hospital. Therefore she was transfused 2 units of packed red blood cells. After which patient clinically improved. She was relatively hypotensive upon presentation, therefore blood pressure medications were held, however, blood pressure improved after getting blood transfusion, therefore her blood pressure medications were restarted, 2 of them were restarted and one was held. She was dc in improved condition Discharge diagnoses Symptomatic anemia due to MDS Chronic stable COPD Hypertension Relative hypotension Hypothyroidism Disposition: DC-01 TO HOME OR SELFCARE Time spent for discharge: 33 minutes Core Measure Documentation - Palliative Care Palliative Care/ Comfort Measures: Not Applicable - Core Measures Any of the following diagnoses?: none Exam - Constitutional Vitals: Temp Pulse Resp BP Pulse Ox 98.2 F 20 L 22 133/51 95 01/16/17 09:20 01/16/17 09:47 01/16/17 09:30 01/16/17 09:20 01/15/17 19:15 General appearance: Present: no acute distress, well-nourished - EENT Eyes: Present: PERRL ENT: hearing intact, clear oral mucosa - Neck Neck: Present: supple, normal ROM - Respiratory Respiratory effort: normal Respiratory: bilateral: CTA - Cardiovascular Heart Sounds: Present: S1 & S2. Absent: rub, click - Extremities Extremities: pulses symmetrical, No edema Peripheral Pulses: within normal limits - Abdominal General gastrointestinal: Present: soft, non-tender, non-distended, normal bowel sounds Female genitourinary: Present: normal - Integumentary Integumentary: Present: clear, warm, dry - Musculoskeletal Musculoskeletal: gait normal, strength equal bilaterally - Psychiatric Psychiatric: appropriate mood/affect, intact judgment & insight - Neurologic Neurologic: CNII-XII intact, moves all extremities Plan Follow up with: PRIMARY CARE, [Primary Care Provider] - 7 Days Prescriptions: amLODIPine [Norvasc] 10 mg PO QDAY #30 tablet Carvedilol [Coreg] 3.125 mg PO BID #60 tablet HYDROcodone/APAP 10-325 [Pauline 10-325 mg TAB] 1 each PO Q6HR PRN #14 tablet PRN Reason: Pain
[2017-01-16 14:20] LABS: Hematocrit 26.9 % (30.3-42.9); Hemoglobin 8.9 gm/dl (10.1-14.3); Mean Corpuscular HGB Conc 33 % (30-34); Mean Corpuscular Hemoglobin 39 pg (28-32); Platelet Count 399 K/mm3 (140-440); Red Blood Count 2.27 M/mm3 (3.65-5.03); White Blood Count 13.4 K/mm3 (4.5-11.0)
[2017-01-16 14:21] LABS: Mean Corpuscular Volume 118 fl (79-97); Red Cell Distribution Width 28.8 % (13.2-15.2)
[2017-01-16 15:05] LABS: Basophils % (Manual) 0 % (0.0-1.8); Blastocytes % (Manual) 0 %; Eosinophils % (Manual) 0 % (0.0-4.3)
[2017-01-16 15:06] LABS: Anisocytosis 3+; Macrocytosis 2+
[2017-01-16 15:07] LABS: Diff Status Complete; Large Platelets Few; Polychromasia 1+; Tear Drop Cells Few
[2017-01-16] MEDS ORDERED: NACL 0.9% 500 ML 500 ML ONE (15:27)
--- NOTE | 2017-01-16 15:55 | Hem/Onc Progress Note ---
Assessment and Plan We will go ahead and give 2 units of packed RBCs leuco reduced. She may be discharged home after that. We'll see her as outpatient. She wants to discuss Revlimid again. Of note she had a hard time tolerating that remained in the past. Subjective Date of service: 01/16/17 Interval history: Patient states that she needs 2 units of blood. She states that without that she drops fast enough to come back again for transfusion. Hemoglobin did drop below 9. Objective - Constitutional Vitals: Last Vital Signs Temp 98.2 F 01/16/17 09:20 Pulse 106 H 01/16/17 15:41 Resp 24 01/16/17 15:41 BP 133/51 01/16/17 09:20 Pulse Ox 95 01/15/17 19:15 General appearance: no acute distress Performance status: 3-limited selfcare - Neck Neck: supple - Respiratory Respiratory effort: Positive: normal Respiratory: bilateral: CTA - Labs Lab Results: Laboratory Results - last 24 hr 01/16/17 01/16/17 01/16/17 00:28 13:39 13:39 WBC 9.0 13.4 H RBC 2.26 L 2.27 L Hgb 8.5 L 8.9 L Hct 26.0 L 26.9 L MCV 115 H 118 H MCH 37 H 39 H MCHC 33 33 RDW 28.2 H 28.8 H Plt Count 359 399 Add Manual Diff Complete Total Counted 100 Seg Neuts % (Manual) 87.0 H Band Neutrophils % 2.0 Lymphocytes % (Manual) 10.0 L Reactive Lymphs % (Man) 0 Monocytes % (Manual) 1.0 Eosinophils % (Manual) 0 Basophils % (Manual) 0 Metamyelocytes % 0 Myelocytes % 0 Promyelocytes % 0 Blast Cells % 0 Nucleated RBC % Not Reportable Seg Neutrophils # Man 11.7 H Band Neutrophils # 0.3 Lymphocytes # (Manual) 1.3 Abs React Lymphs (Man) 0.0 Monocytes # (Manual) 0.1 Eosinophils # (Manual) 0.0 Basophils # (Manual) 0.0 Metamyelocytes # 0.0 Myelocytes # 0.0 Promyelocytes # 0.0 Blast Cells # 0.0 WBC Morphology Not Reportable Hypersegmented Neuts Not Reportable Hyposegmented Neuts Not Reportable Hypogranular Neuts Not Reportable Smudge Cells Not Reportable Toxic Granulation Not Reportable Toxic Vacuolation Not Reportable Dohle Bodies Not Reportable Pelger-Huet Anomaly Not Reportable Maximo Rods Not Reportable Platelet Estimate Appears normal Clumped Platelets Not Reportable Plt Clumps, EDTA Not Reportable Large Platelets Few Giant Platelets Not Reportable Platelet Satelliting Not Reportable Plt Morphology Comment Not Reportable RBC Morphology Not Reportable Dimorphic RBCs Yes Polychromasia 1+ Hypochromasia Not Reportable Poikilocytosis Not Reportable Anisocytosis 3+ Microcytosis Not Reportable Macrocytosis 2+ Spherocytes Not Reportable Pappenheimer Bodies Not Reportable Sickle Cells Not Reportable Target Cells Not Reportable Tear Drop Cells Few Ovalocytes Not Reportable Helmet Cells Not Reportable Sullivan-[place] Bodies Not Reportable [place] Rings Not Reportable [place] Cells Not Reportable Bite Cells Not Reportable Crenated Cell Not Reportable Elliptocytes Not Reportable Acanthocytes (Spur) Not Reportable Rouleaux Not Reportable Hemoglobin C Crystals Not Reportable Schistocytes Not Reportable Malaria parasites Not Reportable Elijah Bodies Not Reportable Hem Pathologist Commnt No Blood Type O POSITIVE Antibody Screen Negative Crossmatch See Detail
[2017-01-16] MEDS ORDERED: LASIX IV ONE (20:07)
[2017-01-16] MEDS ORDERED: BENADRYL PO PRN (21:40)
[2017-01-16] MEDS: TYLENOL PO PRN (22:07)
[2017-01-16] MEDS: ZOCOR PO SCH (22:07)
[2017-01-17] MEDS: VITAMIN D3 PO SCH (09:10)
[2017-01-17] MEDS: LACTINEX PO SCH (09:10)
[2017-01-17] MEDS: ZITHROMAX PO SCH (09:10)
[2017-01-17] MEDS: BABY ASPIRIN PO SCH (09:11)
[2017-01-17] MEDS: SYNTHROID PO SCH (09:11)
[2017-01-17] MEDS: PLETAL PO SCH (09:11)
[2017-01-17] MEDS: PEPCID PO SCH (09:12)
[2017-01-17] MEDS: LOVENOX SUB-Q SCH (09:12)
[2017-01-17] MEDS: FOLVITE PO SCH (10:56)
[2017-01-17] MEDS: VITAMIN B-12 PO SCH (10:57)
--- NOTE | 2017-01-17 11:02 | Progress Note ---
Assessment and Plan Assessment and plan: 76F woman with history of hypertension, COPD, hyperlipidemia, hypothyroidism, MDS, comes to emergency room with complains of cough and shortness of breath, not relieved with her nebulizer treatments at home MDS with symptomatic anemia hematology following, her hemoglobin is dropping, therefore we'll transfuse 2 units packed red blood cells. Patient is transfusion dependent as she gets transfusions every couple of weeks Chronic COPD, stable, not in exacerbation -Pulmonary input appreciated, shortness of breath is mostly from anemia, patient to be transfused. SOB/Elevated CK-MB -Cardiology input appreciated, patient is optimized, no further workup indicated Hypertension Patient has been actually relatively hypotensive, hold blood pressure medications Hyperlipidemia Continue statin Hypothyroidism -Andujar function tests within normal limits, continue synthroid DVT prophylaxis lovenox History Interval history: Patient states that she is having generalized weakness and shortness of breath Hospitalist Physical - Physical exam Narrative exam: General.: Appears well, no distress, nontoxic HEENT: Moist mucous membranes, extraocular muscles intact, no lymphadenopathy Neck: supple Cardiac: S1-S2 heard Lungs: clear to auscultation bilaterally Abdomen: soft , nontender, nondistended, bowel sounds positive Extremities: no edema clubbing or cyanosis Skin: no rash or lesions Neurologic: no gross focal deficits Psych: appropriate behavior, appropriate mood, corporative, judgment intact - Constitutional Vitals: Temp Pulse Resp BP Pulse Ox 97.9 F 89 18 132/61 97 01/17/17 09:15 01/17/17 09:15 01/17/17 09:15 01/17/17 09:15 01/17/17 09:15 General appearance: Present: no acute distress, well-nourished Results - Labs CBC & Chem 7: 01/17/17 13:08 01/15/17 03:35 Labs: Laboratory Last Values WBC 13.4 K/mm3 (4.5-11.0) H 01/16/17 13:39 RBC 2.27 M/mm3 (3.65-5.03) L 01/16/17 13:39 Hgb 8.9 gm/dl (10.1-14.3) L 01/16/17 13:39 Hct 26.9 % (30.3-42.9) L 01/16/17 13:39 MCV 118 fl (79-97) H 01/16/17 13:39 MCH 39 pg (28-32) H 01/16/17 13:39 MCHC 33 % (30-34) 01/16/17 13:39 RDW 28.8 % (13.2-15.2) H 01/16/17 13:39 Plt Count 399 K/mm3 (140-440) 01/16/17 13:39 [place] % (Auto) Plate Shop Helper 01/14/17 19:11 Add Manual Diff Complete 01/16/17 13:39 Total Counted 100 01/16/17 13:39 Seg Neuts % (Manual) 87.0 % (40.0-70.0) H 01/16/17 13:39 Band Neutrophils % 2.0 % 01/16/17 13:39 Lymphocytes % (Manual) 10.0 % (13.4-35.0) L 01/16/17 13:39 Reactive Lymphs % (Man) 0 % 01/16/17 13:39 Monocytes % (Manual) 1.0 % (0.0-7.3) 01/16/17 13:39 Eosinophils % (Manual) 0 % (0.0-4.3) 01/16/17 13:39 Basophils % (Manual) 0 % (0.0-1.8) 01/16/17 13:39 Metamyelocytes % 0 % 01/16/17 13:39 Myelocytes % 0 % 01/16/17 13:39 Promyelocytes % 0 % 01/16/17 13:39 Blast Cells % 0 % 01/16/17 13:39 Nucleated RBC % Not Reportable 01/16/17 13:39 Seg Neutrophils # Man 11.7 K/mm3 (1.8-7.7) H 01/16/17 13:39 Band Neutrophils # 0.3 K/mm3 01/16/17 13:39 Lymphocytes # (Manual) 1.3 K/mm3 (1.2-5.4) 01/16/17 13:39 Abs React Lymphs (Man) 0.0 K/mm3 01/16/17 13:39 Monocytes # (Manual) 0.1 K/mm3 (0.0-0.8) 01/16/17 13:39 Eosinophils # (Manual) 0.0 K/mm3 (0.0-0.4) 01/16/17 13:39 Basophils # (Manual) 0.0 K/mm3 (0.0-0.1) 01/16/17 13:39 Metamyelocytes # 0.0 K/mm3 01/16/17 13:39 Myelocytes # 0.0 K/mm3 01/16/17 13:39 Promyelocytes # 0.0 K/mm3 01/16/17 13:39 Blast Cells # 0.0 K/mm3 01/16/17 13:39 WBC Morphology Not Reportable 01/16/17 13:39 Hypersegmented Neuts Not Reportable 01/16/17 13:39 Hyposegmented Neuts Not Reportable 01/16/17 13:39 Hypogranular Neuts Not Reportable 01/16/17 13:39 Smudge Cells Not Reportable 01/16/17 13:39 Toxic Granulation Not Reportable 01/16/17 13:39 Toxic Vacuolation Not Reportable 01/16/17 13:39 Dohle Bodies Not Reportable 01/16/17 13:39 Pelger-Huet Anomaly Not Reportable 01/16/17 13:39 Maximo Rods Not Reportable 01/16/17 13:39 Platelet Estimate Appears normal 01/16/17 13:39 Clumped Platelets Not Reportable 01/16/17 13:39 Plt Clumps, EDTA Not Reportable 01/16/17 13:39 Large Platelets Few 01/16/17 13:39 Giant Platelets Not Reportable 01/16/17 13:39 Platelet Satelliting Not Reportable 01/16/17 13:39 Plt Morphology Comment Not Reportable 01/16/17 13:39 RBC Morphology Not Reportable 01/16/17 13:39 Dimorphic RBCs Yes 01/16/17 13:39 Polychromasia 1+ 01/16/17 13:39 Hypochromasia Not Reportable 01/16/17 13:39 Poikilocytosis Not Reportable 01/16/17 13:39 Anisocytosis 3+ 01/16/17 13:39 Microcytosis Not Reportable 01/16/17 13:39 Macrocytosis 2+ 01/16/17 13:39 Spherocytes Not Reportable 01/16/17 13:39 Pappenheimer Bodies Not Reportable 01/16/17 13:39 Sickle Cells Not Reportable 01/16/17 13:39 Target Cells Not Reportable 01/16/17 13:39 Tear Drop Cells Few 01/16/17 13:39 Ovalocytes Not Reportable 01/16/17 13:39 Helmet Cells Not Reportable 01/16/17 13:39 Sullivan-[place] Bodies Not Reportable 01/16/17 13:39 [place] Rings Not Reportable 01/16/17 13:39 Angela Cells Not Reportable 01/16/17 13:39 Bite Cells Not Reportable 01/16/17 13:39 Crenated Cell Not Reportable 01/16/17 13:39 Elliptocytes Not Reportable 01/16/17 13:39 Acanthocytes (Spur) Not Reportable 01/16/17 13:39 Rouleaux Not Reportable 01/16/17 13:39 Hemoglobin C Crystals Not Reportable 01/16/17 13:39 Schistocytes Not Reportable 01/16/17 13:39 Malaria parasites Not Reportable 01/16/17 13:39 Elijah Bodies Not Reportable 01/16/17 13:39 Hem Pathologist Commnt No 01/16/17 13:39 Sodium 139 mmol/L (137-145) 01/15/17 03:35 Potassium 4.7 mmol/L (3.6-5.0) 01/15/17 03:35 Chloride 103.2 mmol/L (98-107) 01/15/17 03:35 Carbon Dioxide 24 mmol/L (22-30) 01/15/17 03:35 Anion Gap 17 mmol/L 01/15/17 03:35 BUN 20 mg/dL (7-17) H 01/15/17 03:35 Creatinine 0.8 mg/dL (0.7-1.2) 01/15/17 03:35 Estimated GFR > 60 ml/min 01/15/17 03:35 BUN/Creatinine Ratio 25.00 % 01/15/17 03:35 Glucose 166 mg/dL (65-100) H 01/15/17 03:35 Calcium 8.7 mg/dL (8.4-10.2) 01/15/17 03:35 Total Creatine Kinase 18 units/L (30-135) L 01/15/17 10:29 CK-MB (CK-2) 1.7 ng/mL (0.0-4.0) 01/15/17 10:29 CK-MB (CK-2) Rel Index 9.4 (0-4) H 01/15/17 10:29 Troponin T < 0.010 ng/mL (0.00-0.029) 01/15/17 10:36 TSH 1.010 mlU/mL (0.270-4.200) 01/15/17 10:43 Free T4 1.60 ng/dL (0.76-1.46) H 01/15/17 10:43 Thyroxine (T4) 7.2 ug/dL (4.0-12.0) 01/15/17 10:43 Urine Color Yellow (Yellow) 01/14/17 21:12 Urine Turbidity Clear (Clear) 01/14/17 21:12 Urine pH 5.0 (5.0-7.0) 01/14/17 21:12 Ur Specific [place] 1.019 (1.003-1.030) 01/14/17 21:12 Urine Protein <15 mg/dl mg/dL (Negative) 01/14/17 21:12 Urine Glucose (UA) Neg mg/dL (Negative) 01/14/17 21:12 Urine Ketones Neg mg/dL (Negative) 01/14/17 21:12 Urine Blood Neg (Negative) 01/14/17 21:12 Urine Nitrite Neg (Negative) 01/14/17 21:12 Urine Bilirubin Neg (Negative) 01/14/17 21:12 Urine Urobilinogen 2.0 mg/dL (<2.0) 01/14/17 21:12 Ur Leukocyte Esterase Neg (Negative) 01/14/17 21:12 Urine WBC (Auto) 1.0 /HPF (0.0-6.0) 01/14/17 21:12 Urine RBC (Auto) 1.0 /HPF (0.0-6.0) 01/14/17 21:12 U Epithel Cells (Auto) 1.0 /HPF (0-13.0) 01/14/17 21:12 Urine Bacteria (Auto) 1+ /HPF (Negative) 01/14/17 21:12 Hyaline Casts 1 /LPF 01/14/17 21:12 Urine Mucus Few /HPF 01/14/17 21:12 Blood Type O POSITIVE 01/16/17 13:39 Antibody Screen Negative 01/16/17 13:39 Crossmatch See Detail 01/16/17 13:39
[2017-01-17] MEDS ORDERED: NORVASC PO SCH (12:00)
[2017-01-17] MEDS ORDERED: COREG PO SCH (12:00)
[2017-01-17 13:48] LABS: Hematocrit 33.6 % (30.3-42.9); Hemoglobin 11.7 gm/dl (10.1-14.3)
[2017-01-17 14:53] VITALS: BP 112/39
== END 2017-01-17 14:30 | disposition home or self-care (01) | DRG 812 ==
LOC: ED 17:53 → MERGE 22:20 → CC2 22:20
PROVIDERS: ADMIT Internal Medicine; ATTEND Internal Medicine
PROC: 30233N1 Transfusion of Nonautologous Red Blood Cells into Peripheral Vein, Percutaneous Approach (ICD-10-PCS; principal; 2017-01-16)
DX: D46.9 Myelodysplastic syndrome, unspecified (principal); J96.10 Chronic respiratory failure, unspecified whether with hypoxia or hypercapnia; E78.5 Hyperlipidemia, unspecified; E03.9 Hypothyroidism, unspecified; K21.9 Gastro-esophageal reflux disease without esophagitis; M19.90 Unspecified osteoarthritis, unspecified site; I73.9 Peripheral vascular disease, unspecified; I65.23 Occlusion and stenosis of bilateral carotid arteries; I08.1 Rheumatic disorders of both mitral and tricuspid valves; I11.9 Hypertensive heart disease without heart failure; J44.9 Chronic obstructive pulmonary disease, unspecified; Z99.81 Dependence on supplemental oxygen; Z79.82 Long term (current) use of aspirin
CPT/HCPCS: 36415; 71020; 80048; 81001; 82550; 82553; 84436; 84439; 84443; 84484; 85007; 85014; 85018; 85025; 85027; 86850; 86900; 86901; 86920; 87086; 90686; 93005; 93010; 94640; 94760; 96374; 96375; J0456; J1650; J1940; J2930; J7040; J7050; P9040